=== PATIENT | female | born 1995 | race Caucasian/White ===

== ENCOUNTER → 2018-05-13 | Outpatient (CLI) | payer BC, OTHER ==
--- NOTE | 2018-05-13 16:57 | Diagnostic Imaging Report ---
INDICATION: Swollen right posterior cervical lymph nodes. FINDINGS: Sonographic interrogation of the area of swelling in the right posterior neck was performed. Two normal-appearing lymph nodes are present. One lymph node measures approximately 8 mm x 3 mm. Second lymph node measures approximately 10 mm x 3 mm. No other mass is detected. IMPRESSION: Normal-sized lymph nodes in the right posterior neck at the area of palpable abnormality. Dictated by: Dictated on workstation # [id number]
== END ==
LOC: RAD 14:38
PROVIDERS: ATTEND Nurse Practitioner
DX: R59.0 Localized enlarged lymph nodes (principal)
CPT/HCPCS: 76536

== ENCOUNTER → 2018-09-28 | Outpatient (CLI) | payer OTHER ==
--- NOTE | 2018-09-28 19:01 | Diagnostic Imaging Report ---
INDICATION: Pain. FINDINGS: Lumbar body heights maintained. The alignment anatomic. The disc spaces preserved. No fracture or suspicious endplate irregularity. IMPRESSION: Unremarkable appearance of the anatomically aligned lumbar spine. Dictated by: Dictated on workstation # [id number]
== END ==
LOC: RAD 16:17
PROVIDERS: ATTEND Chiropractor
DX: M54.5 Low back pain (principal); M99.03 Segmental and somatic dysfunction of lumbar region; M99.01 Segmental and somatic dysfunction of cervical region; M99.04 Segmental and somatic dysfunction of sacral region; M79.10 Myalgia, unspecified site; R29.3 Abnormal posture
CPT/HCPCS: 72100